=== PATIENT | male | born 1965 | race Caucasian/White ===

== ENCOUNTER 2020-10-15 02:03 | Emergency (ER) | payer OTHER ==
[~2020-10-15] VITALS: Ht 172.7 cm; Wt 70.4 kg
[2020-10-15 02:05] VITALS: BP 128/96
[2020-10-15] MEDS ORDERED: VALA10008 PO (02:59)
[2020-10-15] MEDS ORDERED: CIPR2.5D2 EACHEYE (02:59)
--- NOTE | 2020-10-15 03:02 | ED.ADGEN ---
General Adult EDM: Chief Complaint: SKIN PROBLEM HPI: HPI: Patient is a 54-year-old male who presents to the emergency room complaining of a rash on the right side of his face. He states he first noticed some blisters and redness on his right forehead. He states that then spread to his eyelid, side of his face, and the tip of his nose. He does not have anything past that area. He denies any redness, drainage, blurred vision from the eye. He has never had anything like this previously. He did have chickenpox as a child. He states that he does have pain but denies any itching with the lesions. No one around him has similar lesions. Review of Systems: Review of Systems: Complete ROS is negative unless otherwise documented in HPI Allergies: Allergies: Allergies Coded Allergies Type Severity Reaction Last Updated Verified No Known Drug Allergies 10/15/20 No Physical Exam: PE: General: Awake, alert, NAD. Well Nourished, well hydrated. Cooperative HEENT: Atraumatic, EOMI, PERRL, airway patent, moist oral mucosa, no fluorescein uptake Neck: Supple, trachea midline Respiratory: CTA bilaterally, normal effort, no wheezing/crackles CV: RRR, no murmur, cap refill <2 GI: Soft, nondistended, nontender, no masses MSK: No obvious deformities Skin: Warm, dry. Right face: Small patches of maculopapular rash with vesicles along the forehead, right side of the face, right upper eyelid, tip of the nose Neuro: A&O x3, speech NL, sensory and motor grossly intact, no focal deficits Psych: Normal affect, normal mood, not suicidal or homicidal EKG: EKG: [] Heart Score: C/O Chest Pain: N/A Risk Factors: Risk Factors: DM, Current or recent (<one month) smoker, HTN, HLP, family history of CAD, obesity. Risk Scores: Score 0 - 3: 2.5% MACE over next 6 weeks - Discharge Home Score 4 - 6: 20.3% MACE over next 6 weeks - Admit for Clinical Observation Score 7 - 10: 72.7% MACE over next 6 weeks - Early Invasive Strategies Radiology/Procedures: Radiology/Procedures: [] Course & Med Decision Making: Course & Med Decision Making Pertinent Labs and Imaging studies reviewed. (See chart for details) Patient is a 54-year-old male presents to the emergency room complaining of rash. Rash appears to be shingles. Patient does not have any pseudodendritic lesions in his right eye at this time. He does not have any visual changes. We did discuss that he will need to see an eye doctor if he develops any of this or should return to the emergency room if it is after hours. We will start him on antivirals and eyedrops. Dragon Disclaimer: Dragon Disclaimer: This electronic medical record was generated, in whole or in part, using a voice recognition dictation system. Departure Departure Impression: Primary Impression: Shingles Disposition: HOME / SELF CARE / HOMELESS Condition: STABLE Referrals: VINCENT BISHOP MD (PCP) NORAH MCGUIRE MD Patient Instructions: Shingles Scripts Ciprofloxacin Hcl (CIPROFLOXACIN HCL) 2.5 Ml Drops 1 DROP EACHEYE QID for 7 Days, #5 ML 0 Refills Prov: COREY HELTON MD 10/15/20 Valacyclovir Hcl (VALACYCLOVIR) 1,000 Mg Tablet 1 TAB PO TID, #21 TAB Prov: COREY HELTON MD 10/15/20 COREY HELTON MD October 15, 2020 03:02
[2020-10-15] MEDS ORDERED: valACYclovir 500 MG TABLET. PO ONE (03:15)
== END 2020-10-15 03:45 | disposition home or self-care (01) ==
LOC: ER 02:03
DX: B02.9 Zoster without complications (principal)
CPT/HCPCS: 99283